=== PATIENT | female | born 1975 | race Hispanic/Latino ===

== ENCOUNTER 2023-01-29 17:14 | Emergency (ER) | payer BC ==
--- NOTE | 2023-01-29 17:44 | RAD REPORT ---
EXAM DESCRIPTION: CT - Ct Stroke Brain Wo Cont - 01/29/2023 5:35 pm CLINICAL HISTORY: STROKE ALERT COMPARISON: No comparisons TECHNIQUE: Noncontrast head CT images ad were obtained without IV contrast. Multiplanar reformats we re generated and reviewed. All CT scans are performed using dose optimization technique as appropriate and may include automated exposure control or mA/KV adjustment according to patient size. FINDINGS: No intracranial hemorrhage, mass, or edema. Midline structures are unremarkable. Normal ventricular caliber for age. Sharp-white matter differentiation is preserved, without evidence of acute infarct. No abnormal extra- axial fluid collections. Mastoid air cells and visualized portions of the paranasal sinuses are clear. No acute bony findings. IMPRESSION: No evidence of an acute intracranial process. The findings were communicated to Barak Lozoya on 01/29/2023 at 17:39 hours.
[2023-01-29 17:46] LABS: Absolute Lymphocytes (CBC) 2.7 K/uL (0.7-4.9); Hematocrit 33.4 % (36.0-45.0); Lymphocytes % 36.7 % (15.3-44.8); MCV 76.8 fL (80-100); MPV 7.6 fL (7.6-11.3); RBC Red Blood Cell Count 4.35 M/uL (3.86-4.86)
[2023-01-29 17:54] LABS: Protime INR 1.05
[2023-01-29 18:05] LABS: Albumin 3.4 g/dL (3.4-5.0); Bilirubin Direct 0.1 mg/dL (0-0.2); Bilirubin Indirect, Calculated 0.3 mg/dL (0.2-0.8); Bilirubin Total 0.4 mg/dL (0.2-1.0); Magnesium 1.8 mg/dL (1.6-2.4); Potassium 3.4 mEq/L (3.5-5.1); Protein, Total 7.7 g/dL (6.4-8.2); Troponin High Sensitivity 7.2 pg/mL (<58.9)
--- NOTE | 2023-01-29 19:02 | RAD REPORT ---
[facility] CLINICAL HISTORY: stroke COMPARISON: CHEST SINGLE VIEW dated 08/13/2014 TECHNIQUE: Portable AP view of the chest. FINDINGS: The lungs are clear. No pneumothorax or effusion. The cardiomediastinal contours are unre markable. IMPRESSION: No acute cardiopulmonary process.
--- NOTE | 2023-01-29 19:12 | RAD REPORT ---
EXAM DESCRIPTION: MRI - Brain Wo Cont - 01/29/2023 6:45 pm CLINICAL HISTORY: stroke- LUE ashleyjessica COMPARISON: Noncontrast head CT of the same date TECHNIQUE: Multiplanar multisequence MRI of the brain performed without IV contrast employing rapid stroke assessment protocol. FINDINGS: No evidence of acute infarct or other diffusion signal abnormality. No evidence of acute intracranial hemorrhage or abnormal extra-axial fluid collections. Ventricular caliber within normal for age. Midline structures are unremarkable. No white matter signal abnormalities. No mass effect or midline shift. Major vascular flow voids are preserved. Mastoid air cells and paranasal sinuses are clear. IMPRESSION: No acute intracranial process. No evidence of acute intracranial hemorrhage or infarct.
--- NOTE | 2023-01-29 19:26 | EDPHYS ---
Physician Documentation [facility] Name: Gina Faustin Age: 47 yrs Sex: Female : 1975 Arrival Date: 01/29/2023 Time: 17:14 Bed 3 Private MD: ED Physician Papo Obrien HPI: 01/29 18:07 This 47 yrs old Female presents to ER via Ambulatory with complaints of ms3 Weakness, Blurred Vision. 18:07 47-year-old female with no past medical history presents for left upper and lower ms3 extremity weakness. Patient states she was last normal at 9 AM. Patient states she fell at 10 AM and her left leg and arm were heavy and weak at that time. Patient states she is having left-sided head pain that is described as burning and moderate in nature. Patient denies alleviating or inciting factors.. Historical: - Allergies: 17:38 No Known Allergies; hb - Home Meds: 17:38 multivitamin oral tablet daily [Active]; hb - PMHx: 17:38 None; hb - PSHx: 17:38 Cholecystectomy; section; hb - Immunization history:: Adult Immunizations up to date. - Social history:: Smoking status: Patient denies any tobacco usage or history of. ROS: 18:07 Constitutional: Negative for fever, and chills. Neck: Negative for injury, pain, and ms3 swelling, Cardiovascular: Negative for chest pain, and palpitations. Respiratory: Negative for shortness of breath, cough, wheezing, and pleuritic chest pain, Abdomen/GI: Negative for abdominal pain, nausea, vomiting, diarrhea, and constipation, MS/Extremity: Negative for injury and deformity, Skin: Negative for injury, rash, and discoloration. 18:07 Neuro: Positive for headache, weakness. 18:07 All other systems are negative. Exam: 18:07 Constitutional: This is a well developed, well nourished patient who is awake, alert, ms3 and in no acute distress. Head/Face: Normocephalic, atraumatic. Neck: Trachea midline, no cervical lymphadenopathy. Supple, full range of motion without nuchal rigidity, or vertebral point tenderness. No Meningismus. Chest/axilla: Normal chest wall appearance and motion. Nontender with no deformity. Cardiovascular: Regular rate and rhythm with a normal S1 and S2. No gallops, murmurs, or rubs. Normal PMI, no JVD. No pulse deficits. Respiratory: Lungs have equal breath sounds bilaterally, clear to auscultation and percussion. No rales, rhonchi or wheezes noted. No increased work of breathing, no retractions or nasal flaring. Abdomen/GI: Soft, non-tender, with normal bowel sounds. No distension or tympany. No guarding or rebound. No evidence of tenderness throughout. Skin: Warm, dry with normal turgor. Normal color with no rashes, no lesions, and no evidence of cellulitis. 18:07 Musculoskeletal/extremity: Extremities: noted in the left arm: drift. 18:07 Neuro: Orientation: is normal, Mentation: is normal, Memory: is normal, Cranial nerves: CN I not tested, CN II- XII are normal as tested, Cerebellar function: normal finger to nose testing, Motor: moves all fours, Sensation: no obvious gross deficits. 18:45 ECG was reviewed by the Attending Physician. ms3 Vital Signs: 17:16 BP 182 / 122; Pulse 68; Resp 18; Temp 98.1; Pulse Ox 100% on R/A; Weight 116.57 kg; hb Height 5 ft. 2 in. ; Pain 5/10; 17:45 BP 135 / 87; Pulse 85; Resp 16; Pulse Ox 98% on R/A; vg1 17:46 BP 142 / 98; Pulse 81; Resp 18; Pulse Ox 100% on R/A; mb9 18:15 BP 137 / 77; Pulse 74; Resp 18; Pulse Ox 100% on R/A; mb9 19:02 BP 157 / 91; Pulse 77; Resp 18; Pulse Ox 98% on R/A; mb9 19:31 BP 124 / 79; Pulse 72; Resp 16; Pulse Ox 100% on R/A; mb9 17:16 Body Mass Index 47.01 (116.57 kg, 157.48 cm) hb 17:16 Pain Scale: Adult hb NIH Stroke Scale Scores: 17:30 NIHSS Score: 2 mb9 17:31 NIHSS Score: 2 ms3 MDM: 17:29 Patient medically screened. ms3 19:16 ED course: Discussed case with Dr. Matos and patient to follow-up in clinic. Patient ms3 to be discharged on 81 mg aspirin daily and 1 mg folic acid daily. 19:26 Data reviewed: vital signs, nurses notes, lab test result(s), radiologic studies, CT ms3 scan, MRI, plain films, and as a result, I will discharge patient. Consideration of Admission/Observation Escalation of care including admission/observation considered. Management of patient was discussed with the following: Social Services Designee: Dr. Matos. I considered the following discharge prescriptions or medication management in the emergency department Medications were administered in the Emergency Department. See MAR. Independent interpretation of the following test(s) in the Emergency Department CT Scan: My interpretation is CT head without contrast images reviewed at time of study do not reveal intracranial hemorrhage. Counseling: I had a detailed discussion with the patient and/or guardian regarding: the historical points, exam findings, and any diagnostic results supporting the discharge/admit diagnosis, lab results, radiology results, the need for outpatient follow up, to return to the emergency department if symptoms worsen or persist or if there are any questions or concerns that arise at home. Special discussion: I discussed with the patient/guardian in detail that at this point there is no indication for admission to the hospital. It is understood, however, that if the symptoms persist or worsen the patient needs to return immediately for re-evaluation. ED course: On reevaluation patient NIH is 0, patient is alert and oriented x4, no apparent distress, nontoxic, speaking full sentences. Patient to follow-up with Dr. Matos in 1 to 2 days. Patient given prescription for aspirin 81 mg daily and folic acid 1 mg daily. Return precautions discussed include weakness, numbness, worsening symptoms, or any other concerns. 01/29 17:30 Order name: Basic Metabolic Panel; Complete Time: 18:06 ms3 01/29 17:30 Order name: CBC with Diff; Complete Time: 18:06 ms3 01/29 17:30 Order name: Hepatic Function; Complete Time: 18:06 ms3 01/29 17:30 Order name: High Sensitivity Troponin; Complete Time: 18:06 ms3 01/29 17:30 Order name: Magnesium; Complete Time: 18: ms3 01/29 17:30 Order name: Protime (+inr); Complete Time: 18:06 ms3 01/29 17:30 Order name: Ptt, Activated; Complete Time: 18: ms3 01/29 17:53 Order name: Glucose, Ancillary Testing; Complete Time: 18:06 EDMS 01/29 17:30 Order name: CT Stroke Brain w/o Contrast; Complete Time: 18:06 ms3 01/29 17:30 Order name: Stroke CXR 1 View; Complete Time: 19:15 ms3 01/29 18:42 Order name: Brain Wo Cont; Complete Time: 19:15 EDMS 01/29 17:30 Order name: EKG; Complete Time: 17:31 ms3 01/29 17:30 Order name: Accucheck; Complete Time: 17:43 ms3 01/29 17:30 Order name: Cardiac monitoring; Complete Time: 17:30 ms3 01/29 17:30 Order name: EKG - Nurse/Tech; Complete Time: 17:43 ms3 01/29 17:30 Order name: IV Saline Lock; Complete Time: 17:43 ms3 01/29 17:30 Order name: Labs collected and sent; Complete Time: 17:43 ms3 01/29 17:30 Order name: NPO; Complete Time: 17:30 ms3 01/29 17:30 Order name: O2 Per Protocol; Complete Time: 17:30 ms3 01/29 17:30 Order name: O2 Sat Monitoring; Complete Time: 17:30 ms3 01/29 17:30 Order name: Stroke Swallow Screen; Complete Time: 17:43 ms3 EC:45 Rate is 78 beats/min. Rhythm is regular. QRS [place] is Normal. [place] interval is normal. QRS ms3 interval is normal. Clinical impression: Normal ECG. Interpreted by me. Reviewed by me. Administered Medications: No medications were administered Point of Care Testing: Blood Glucose: 17:40 Blood Glucose: 102 mg/dL; vg1 Ranges: Critical Glucose Levels:Adult <50 mg/dl or >400 mg/dl <40 mg/dl or >180 mg/dl Disposition Summary: 01/29/23 19:26 Discharge Ordered Location: Home ms3 Condition: Stable ms3 Diagnosis - Paresthesia of skin ms3 - Weakness ms3 Followup: ms3 - With: Yovany Matos MD - When: 1 - 2 days - Reason: Recheck today's complaints Discharge Instructions: - Discharge Summary Sheet ms3 - Paresthesia ms3 - Weakness, [id number]-Feif ms3 Forms: - Medication Reconciliation Form ms3 - Thank You Letter ms3 - Antibiotic Education ms3 - Prescription Opioid Use ms3 Prescriptions: - aspirin 81 mg Oral tablet, delayed release (enteric coated) - take 1 tablet by ORAL route daily; 30 tablet; Refills: 0, Product Selection ms3 Permitted - Folic Acid 1 mg Oral Tablet - take 1 tablet by ORAL route once daily; 30 tablet; Refills: 0, Product ms3 Selection Permitted NIH Stroke Scale - NIH Stroke Score Date: 01/29/2023 Time: 17:30 Total Score = 2 10. Dysarthria (speech clarity - read or repeat words) - 0(Normal) 11. Extinction and Inattention (visual/tactile/auditory/spatial/personal) - 0(No abnormality) 1a. Level of Consciousness (LOC) - 0(Alert) 1b. Level of Consciousness (LOC) (Month \T\ Age) - 0(Both) 1c. LOC Commands (Open \T\ Closes Eyes/Retoucher) - 0(Both) 2. Best Gaze (Lateral Gaze Paresis) - 0(Normal) 3. Visual Field Loss - 0(No visual loss) 4. Facial Palsy - 0(Normal) 5a. Left Arm: Motor (10-second hold) - 1(Drift) 5b. Right Arm: Motor (10-second hold) - 0(No drift) 6a. Left Leg: Motor (5-second hold - always test supine) - 0(No drift) 6b. Right Leg: Motor (5-second hold - always test supine) - 0(No drift) 7. Limb Ataxia (finger/nose \T\ heel/barksdale - test with eyes open) - 0(Absent) 8. Sensory Loss (pinprick arms/legs/face) - 1(Mild to moderate loss) 9. Best Language: Aphasia (description/naming/reading) - 0(No aphasia) Initials: mb9 NIH Stroke Scale - NIH Stroke Score Date: 01/29/2023 Time: 17:31 Total Score = 2 10. Dysarthria (speech clarity - read or repeat words) - 0(Normal) 11. Extinction and Inattention (visual/tactile/auditory/spatial/personal) - 0(No abnormality) 1a. Level of Consciousness (LOC) - 0(Alert) 1b. Level of Consciousness (LOC) (Month \T\ Age) - 0(Both) 1c. LOC Commands (Open \T\ Closes Eyes/Retoucher) - 0(Both) 2. Best Gaze (Lateral Gaze Paresis) - 0(Normal) 3. Visual Field Loss - 0(No visual loss) 4. Facial Palsy - 1(Minor Paralysis) 5a. Left Arm: Motor (10-second hold) - 1(Drift) 5b. Right Arm: Motor (10-second hold) - 0(No drift) 6a. Left Leg: Motor (5-second hold - always test supine) - 0(No drift) 6b. Right Leg: Motor (5-second hold - always test supine) - 0(No drift) 7. Limb Ataxia (finger/nose \T\ heel/barksdale - test with eyes open) - 0(Absent) 8. Sensory Loss (pinprick arms/legs/face) - 0(Normal) 9. Best Language: Aphasia (description/naming/reading) - 0(No aphasia) Initials: ms3 Signatures: Dispatcher [employer] EDMS Devika Roblero RN RN hb Sims, Marcus, DO DO ms3 Corrections: (The following items were deleted from the chart) 18:42 17:32 MR STROKE PROTOCOL+MRI.RAD.LILIANE ordered. EDMS EDMS
--- NOTE | 2023-01-29 19:26 | ER ---
Nurse's Notes [facility] Ward Name: Gina Ramin Age: 47 yrs Sex: Female : 1975 Arrival Date: 01/29/2023 Time: 17:14 Bed 3 Private MD: Diagnosis: Paresthesia of skin;Weakness Presentation: 01/29 17:16 Chief complaint: Left leg weakness mid morning, numbness of left face, left arm, and hb left leg that started at approx 3pm, last known normal was 0900 today. Coronavirus screen: At this time, the client does not indicate any symptoms associated with coronavirus-19. Ebola Screen: No symptoms or risks identified at this time. An acute neurological deficit is present. The charge nurse has been notified. The patient has been moved to a treatment area. Initial Sepsis Screen: Does the patient meet any 2 criteria? No. Patient's initial sepsis screen is negative. Does the patient have a suspected source of infection? No. Patient's initial sepsis screen is negative. Onset of symptoms was January 29, 2023. 17:16 Method Of Arrival: Ambulatory hb 17:16 Acuity: CARO 2 hb 17:33 Risk Assessment: Do you want to hurt yourself or someone else?. mb9 Stroke Activation: Symptom onset > 6 hours Physician: Stroke Attending; Name: ; Notified At: ; Arrived At: Physician: Chief Stroke Resident; Name: ; Notified At: ; Arrived At: Physician: Stroke Resident; Name: ; Notified At: ; Arrived At: Physician: ED Attending; Name: ; Notified At: ; Arrived At: Physician: ED Resident; Name: ; Notified At: ; Arrived At: Historical: - Allergies: 17:38 No Known Allergies; hb - Home Meds: 17:38 multivitamin oral tablet daily [Active]; hb - PMHx: 17:38 None; hb - PSHx: 17:38 Cholecystectomy; section; hb - Immunization history:: Adult Immunizations up to date. - Social history:: Smoking status: Patient denies any tobacco usage or history of. Screenin:32 [facility] ED Fall Risk Assessment (Adult) History of falling in the last 3 months, mb9 including since admission No falls in past 3 months (0 pts) Confusion or Disorientation No (0 pts) Intoxicated or Sedated No (0 pts) Impaired Gait No (0 pts) Mobility Assist Device Used No (0 pt) Altered Elimination No (0 pt) Score/Fall Risk Level 0 - 2 = Low Risk Oriented to surroundings, Maintained a safe environment, Educated pt \T\ family on fall prevention, incl call for assistance when getting out of bed. Abuse screen: Denies threats or abuse. Nutritional screening: No deficits noted. Tuberculosis screening: No symptoms or risk factors identified. Assessment: 17:19 Reassessment: pt taken to CT via wheelchair accompanied by NIECY Fortune. hb 17:30 VAN Scoring: Arm Drift: Minor drift Visual Disturbance: No visual disturbance noted. mb9 Aphasia: No aphasia noted. Neglect: No neglect noted. General: Appears in no apparent distress. Behavior is calm, cooperative, appropriate for age. Pain: Complains of pain in left side of head Pain does not radiate. Pain currently is 6 out of 10 on a pain scale. Quality of pain is described as sharp, shooting. 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 Gait is unsteady, Speech is normal, Facial symmetry appears normal, Pupils are PERRLA, Tingling in left arm Numbness in left side of face and arm. Cardiovascular: Patient's skin is warm and dry. Respiratory: Airway is patent Respiratory effort is even, unlabored, Respiratory pattern is regular, symmetrical. Derm: Skin is pink, warm \T\ dry. Musculoskeletal: Range of motion: intact in all extremities. 18:20 Reassessment: pt taken to MRI via wheelchair. mb9 18:49 Reassessment: Patient and/or family updated on plan of care and expected duration. Pain mb9 level reassessed. Patient is alert, oriented x 3, equal unlabored respirations, skin warm/dry/pink. Vital Signs: 17:16 BP 182 / 122; Pulse 68; Resp 18; Temp 98.1; Pulse Ox 100% on R/A; Weight 116.57 kg; hb Height 5 ft. 2 in. ; Pain 5/10; 17:45 BP 135 / 87; Pulse 85; Resp 16; Pulse Ox 98% on R/A; vg1 17:46 BP 142 / 98; Pulse 81; Resp 18; Pulse Ox 100% on R/A; mb9 18:15 BP 137 / 77; Pulse 74; Resp 18; Pulse Ox 100% on R/A; mb9 19:02 BP 157 / 91; Pulse 77; Resp 18; Pulse Ox 98% on R/A; mb9 19:31 BP 124 / 79; Pulse 72; Resp 16; Pulse Ox 100% on R/A; mb9 17:16 Body Mass Index 47.01 (116.57 kg, 157.48 cm) hb 17:16 Pain Scale: Adult hb NIH Stroke Scale Scores: 17:30 NIHSS Score: 2 mb9 17:31 NIHSS Score: 2 ms3 ED Course: 17:15 Patient arrived in ED. ts1 17:22 Papo Obrien DO is Attending Physician. ms3 17:23 Rosa Elena Dalton, RN is Primary Nurse. mb9 17:25 Arm band placed on. mb9 17:31 Placed in gown. Bed in low position. Call light in reach. Side rails up X 1. Client mb9 placed on continuous cardiac and pulse oximetry monitoring. NIBP monitoring applied. telemetry monitor on. 17:34 CT Stroke Brain w/o Contrast In Process Unspecified. EDMS 17:36 EKG done, by ED staff, reviewed by Papo Obrien DO. mb9 17:38 Triage completed. hb 17:39 No provider procedures requiring assistance completed. Inserted saline lock: 20 gauge mb9 in right antecubital area, using aseptic technique. 17:44 Basic Metabolic Panel Sent. mb9 17:44 CBC with Diff Sent. mb9 17:44 Hepatic Function Sent. mb9 17:44 High Sensitivity Troponin Sent. mb9 17:44 Magnesium Sent. mb9 17:44 Ptt, Activated Sent. mb9 17:44 Protime (+inr) Sent. mb9 18:42 Brain Wo Cont In Process Unspecified. EDMS 18:53 Stroke CXR 1 View In Process Unspecified. EDMS 19:25 Yovany Matos MD is Referral Physician. ms3 19:32 IV discontinued, intact, bleeding controlled, No redness/swelling at site. Pressure mb9 dressing applied. Administered Medications: No medications were administered Medication: 17:31 VIS not applicable for this client. mb9 Point of Care Testing: Blood Glucose: 17:40 Blood Glucose: 102 mg/dL; vg1 Ranges: Outcome: 19:26 Discharge ordered by . ms3 19:32 Discharged to home ambulatory. mb9 19:32 Condition: stable 19:32 Discharge instructions given to patient, Instructed on discharge instructions, follow up and referral plans. Demonstrated understanding of instructions, follow-up care, medications, Prescriptions given X 2. 19:39 Patient left the ED. mb9 NIH Stroke Scale - NIH Stroke Score Date: 01/29/2023 Time: 17:30 Total Score = 2 10. Dysarthria (speech clarity - read or repeat words) - 0(Normal) 11. Extinction and Inattention (visual/tactile/auditory/spatial/personal) - 0(No abnormality) 1a. Level of Consciousness (LOC) - 0(Alert) 1b. Level of Consciousness (LOC) (Month \T\ Age) - 0(Both) 1c. LOC Commands (Open \T\ Closes Eyes/Tanning Wheel Filler) - 0(Both) 2. Best Gaze (Lateral Gaze Paresis) - 0(Normal) 3. Visual Field Loss - 0(No visual loss) 4. Facial Palsy - 0(Normal) 5a. Left Arm: Motor (10-second hold) - 1(Drift) 5b. Right Arm: Motor (10-second hold) - 0(No drift) 6a. Left Leg: Motor (5-second hold - always test supine) - 0(No drift) 6b. Right Leg: Motor (5-second hold - always test supine) - 0(No drift) 7. Limb Ataxia (finger/nose \T\ heel/barksdale - test with eyes open) - 0(Absent) 8. Sensory Loss (pinprick arms/legs/face) - 1(Mild to moderate loss) 9. Best Language: Aphasia (description/naming/reading) - 0(No aphasia) Initials: mb9 NIH Stroke Scale - NIH Stroke Score Date: 01/29/2023 Time: 17:31 Total Score = 2 10. Dysarthria (speech clarity - read or repeat words) - 0(Normal) 11. Extinction and Inattention (visual/tactile/auditory/spatial/personal) - 0(No abnormality) 1a. Level of Consciousness (LOC) - 0(Alert) 1b. Level of Consciousness (LOC) (Month \T\ Age) - 0(Both) 1c. LOC Commands (Open \T\ Closes Eyes/Tanning Wheel Filler) - 0(Both) 2. Best Gaze (Lateral Gaze Paresis) - 0(Normal) 3. Visual Field Loss - 0(No visual loss) 4. Facial Palsy - 1(Minor Paralysis) 5a. Left Arm: Motor (10-second hold) - 1(Drift) 5b. Right Arm: Motor (10-second hold) - 0(No drift) 6a. Left Leg: Motor (5-second hold - always test supine) - 0(No drift) 6b. Right Leg: Motor (5-second hold - always test supine) - 0(No drift) 7. Limb Ataxia (finger/nose \T\ heel/barksdale - test with eyes open) - 0(Absent) 8. Sensory Loss (pinprick arms/legs/face) - 0(Normal) 9. Best Language: Aphasia (description/naming/reading) - 0(No aphasia) Initials: ms3 Signatures: Dispatcher [employer] EDMS Devika Roblero RN RN hb Garcia, Victoria, RN RN 1 Papo Obrien DO DO ms3 Sha, Rosa Elena Aguilera RN RN mb9 Milly Morocho, ELIANA PAS ts1 Corrections: (The following items were deleted from the chart) 17:34 17:20 Reassessment: pt taken to CT via wheelchair accompanied by NIECY Fortune mb9 18:02 17:33 VAN Screening: Arm Drift: Minor drift. Visual Disturbance: No visual mb9 disturbance noted. mb9 18:02 17:34 NIHSS Score: 2 mb9 mb9
[2023-01-29 20:11] VITALS: TEMP 98.1
[2023-01-29 20:20] VITALS: BP 124/79; O2SAT 100
--- NOTE | 2023-01-31 14:51 | EKG ---
Test Date: 2023-01-29 Test Time: 17:39:19 [employer] Driver: MB MEASUREMENT RESULTS: Intervals: Rate: 78 SC: 144 QRSD: 78 QT: 352 QTc: 401 [place]: P: 57 SC: 144 QRS: 16 T: 27 INTERPRETIVE STATEMENTS: Normal sinus rhythm Normal ECG Compared to ECG 08/13/2014 00:22:31 Left ventricular hypertrophy no longer present Electronically Signed On 01-31-23 14:45:02 CDT by Tank Rendon
== END 2023-01-29 19:39 | disposition home or self-care (01) ==
LOC: ER 17:14
DX: R20.2 Paresthesia of skin (principal); R53.1 Weakness; H53.8 Other visual disturbances
CPT/HCPCS: 36415; 70450; 70551; 71045; 80048; 80076; 82947; 83735; 84484; 85025; 85610; 85730; 93005; 99285